=== PATIENT | male | born 1960 | race African-American/Black ===

== ENCOUNTER 2017-04-28 16:25 | Emergency (ER) | payer OTHER ==
[2017-04-28 17:24] VITALS: BP 145/96
--- NOTE | 2017-04-28 17:50 | UC ---
Mitch Olvera Aidan, scribed for Anamika Dickens MD on 04/28/17 at 1712 . Cardiac HPI - HPI Summary HPI Summary: 56 y/o male presents to the Urgent Care with a complaint of an acute, moderate- to-severe (8/10) episode of left-sided CP that began at 0530 this morning upon awakening. Fell asleep again, pain still present a couple hours late, but waned throughout the morning. Chest pain is "inside," points to mid left chest. Has been having L shoulder pain x approx 2 days. Unclear of alleviating or worsening factors, but seems to feel better when elevated. Worse lying down. Possibly attributes as a result of misbalance 2/2 pain in R neck several days ago (not now). No p/d/w. 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 No sob or palpitations. No GI issues. No rash. No recent fever / chills. Pain nonpleuritic. Pt denies any fever, cough, or recent travel. Hx of HTN. FHx of HTN and cardiac disease. Dominant hand is right. + tobacco 1ppd. No recent travel long distance. Pt mentions sleeping on his left side, and wonders if this is related. - History of Current Complaint Chief Complaint: UCChestPain Stated Complaint: CHEST PAIN Time Seen by Provider: 04/28/17 16:42 Hx Obtained From: Patient Onset/Duration: Sudden Onset, Lasting Hours - CP, Resolved - however, his shoulder pain is still present waxing and waning in severity Timing: Intermittent Episodes Lasting: - episode of CP, his shoulder pain is more constant despite waxing and waning in severity Initial Severity: Moderate Current Severity: Moderate Pain Intensity: 8 Chest Pain Location: Discrete at: - left side of chest Character: Pressure/Squeezing Aggravating: Exertion - applying pressure to the left shoulder aggravates shoulder pain Alleviating: Upright - lifting his left arm in the air slightly alleviates his left shoulder pain Associated Signs & Symptoms: Negative: Negative - left shoulder pain, episode of neck pain - Risk Factors Pulmonary Embolism Risk Factors: Smoking Cardiac Risk Factors: Hypertension, Smoking Atrial Fibrillation: Hypertension TAD Risk Factors: Smoking, Hypertension AMI/ACS Risk Factors: Hypertension, Smoking - Allergy/Home Medications Allergies/Adverse Reactions: Allergies Allergy/AdvReac Type Severity Reaction Status Date / Time No Known Allergies Allergy Verified 10/12/16 13:56 PMH/Surg Hx/FS Hx/Imm Hx Previously Healthy: Yes - htn Cardiovascular History: Hypertension Other History Of: Negative For: HIV, Hepatitis B, Hepatitis C, Anticoagulant Therapy - Surgical History Surgical History: Yes Surgery Procedure, Year, and Place: HERNIA- 1985, [facility] – [place]. PENIS SURGERY A CHILD , [facility] [place] - Family History Known Family History: Positive: Cardiac Disease, Hypertension, Diabetes - Social History Occupation: Employed Full-time Lives: With Family Alcohol Use: Occasionally Alcohol Amount: 3-4 Q 4-5 DAYS Substance Use Type: None Substance Use Comment - Amount & Last Used: CLEAN 1.5 YEARS Smoking Status (MU): Current Every Day Smoker Type: Cigarettes Amount Used/How Often: 1.5 PPD Have You Smoked in the Last Year: Yes Household Exposure Type: Cigarettes Review of Systems Constitutional: Negative Skin: Negative Eyes: Negative ENT: Negative Respiratory: Negative Cardiovascular: Chest Pain Gastrointestinal: Negative Genitourinary: Negative Motor: Other - see hpi Neurovascular: Negative Musculoskeletal: Arthralgia - left shoulder pain, episode of neck pain Neurological: Negative Psychological: Negative All Other Systems Reviewed And Are Negative: Yes Physical Exam Triage Information Reviewed: Yes Appearance: Well-Appearing - sitting up. conversing easily and appropriately., Well-Nourished Vital Signs: Initial Vital Signs Temp 99.4 F 04/28/17 16:27 Pulse 97 04/28/17 16:27 Resp 18 04/28/17 16:27 BP 113/96 04/28/17 16:27 Pulse Ox 99 04/28/17 16:27 Vital Signs Reviewed: Yes Eye Exam: Normal ENT Exam: Normal ENT: Positive: Normal ENT inspection Neck exam: Normal - although suspect djd Neck: Positive: Supple, Nontender, No Lymphadenopathy Respiratory Exam: Normal, Other - no dyspnea, no tachypnea, normal respiratory rate Respiratory: Positive: Chest non-tender, Lungs clear, Normal breath sounds, No respiratory distress, No accessory muscle use Cardiovascular Exam: Normal Cardiovascular: Positive: RRR, Brisk Capillary Refill, Other: - good general skin color unable to reproduce chest discomfort. No rash. No crepitus. Abdominal Exam: Normal Abdomen Description: Positive: Nontender, No Organomegaly, Soft Bowel Sounds: Positive: Present Musculoskeletal Exam: Other - Unable to localize point nadia or joint tenderness , although c/o tenderness ac joint area, also posterior shoulder. FROM. Strength good. + ax n sensation present bilat. Distal NVI. Musculoskeletal: Positive: Strength Intact Neurological Exam: Normal, Other - nonfocal, grossly intact Neurological: Positive: Alert Psychological Exam: Normal, Other - conversing easily and appropriately Psychological: Positive: Age Appropriate Behavior Skin Exam: Normal, Other - no visible and report rash Diagnostics - EKG Cardiac Rate: NL - 82 BPM Cardiac Rhythm: Sinus: Normal - EKG AT 1634; NORMAL SINUS RHYTHM, VA 165, QTC 436 - Assessment/Plan Course Of Treatment: No new problems in CCC. Still left shoulder discomfort. No current chest discomfort. EKG nsr 82 bpm. While ekg is normal, I d/w pt that this is not full assurance of a non-serious or non-cardiac issue. Recommend further evaluation and management in the ED. D/w pt, he expresses understanding and agreement. I spoke with FAISAL Gonzalez, ED. EMS transport offered but Mr. Estevez politely but firmly declines, his will drive him. He is aware of risks of cardiac or other serious event, disability or . Declines signing ama (for ems) form. Questions answered to the best of my ability. Departed the [facility], ambulatory. Diff dx - considered diff dx's as below. Your blood pressure was 113/96 which is hypertensive. Recommended follow-up with your primary care provider within 4 weeks for blood pressure readings and further evaluation. The FAISAL Chapman in the ED was consulted. The patient will be transfered to the ED. Resolutely declines aspirin po. - Clinical Impression Provider Diagnoses: Chest pain, shoulder pain Left - Physician Notifications Discussed Patient Care With: Adela (FAISAL in the ED) Time Discussed With Above Provider: 17:13 - The patient will be transfered to the ED, though he signed out AMA. He will be transported by his . Discharge - Discharge Plan Condition: Stable Disposition: TRANS HIGHER LVL OF CARE FAC Discharge Disposition Comment: The patient will be transfered at 1721 to the ED. Referrals: Josué Kenny DO [Primary Care Provider] - The documentation as recorded by the Mitch light Aidan accurately reflects the service I personally performed and the decisions made by me, Anamika Dickens MD.
== END 2017-04-28 17:15 | disposition left against medical advice (07) ==
LOC: UCEAST 16:25
DX: R07.9 Chest pain, unspecified (principal); M25.512 Pain in left shoulder; F17.210 Nicotine dependence, cigarettes, uncomplicated; I10 Essential (primary) hypertension
CPT/HCPCS: 93005; 99212; G0463

== ENCOUNTER → 2017-04-28 17:36 | Emergency (ER) | payer OTHER ==
[2017-04-28 17:48] VITALS: BP 133/88
== END | disposition left against medical advice (07) ==
LOC: ED 17:36
DX: R07.9 Chest pain, unspecified (principal); Z53.21 Procedure and treatment not carried out due to patient leaving prior to being seen by health care provider

== ENCOUNTER 2017-07-04 11:33 | Emergency (ER) | payer OTHER ==
[2017-07-04] MEDS ORDERED: Tetan/Diph/Pertus SYR(Tdap)* 0.5 ML SYR(BOOSTRIX) use SYR IM ONE (13:11)
--- NOTE | 2017-07-04 13:22 | RAD ---
INDICATION: Left third digit laceration COMPARISON: None TECHNIQUE: AP, lateral, and oblique views were obtained. FINDINGS: There is laceration about the tuft with bony involvement and associated cortical defect at the level of the tuft. There is mild diffuse soft tissue swelling. No additional findings. IMPRESSION: LACERATION AT THE LEVEL OF THE TUFT BONE INVOLVEMENT.
[2017-07-04 13:45] VITALS: BP 144/97
[2017-07-04] MEDS ORDERED: ceFAZolin 1 GM VIAL(*) 1 GM in NS 0.9% 50 ML* 50 ML IVPB ONE (13:47)
[2017-07-04] MEDS ORDERED: Lidocaine 2% PF * 5 ML VIAL INJ ONE (13:48)
[2017-07-04] MEDS ORDERED: ceFAZolin 1 GM VIAL(*) ONE (13:51)
--- NOTE | 2017-07-04 15:31 | UC ---
Laceration HPI - HPI Summary HPI Summary: 30 MINUTES [employer] WAS TRIMMING BUSHES WITH HEDGE TRIMMERS CUT TO (DISTAL VOLAR) LEFT MIDDLE FINGER - History Of Current Complaint Chief Complaint: UCLaceration Stated Complaint: FINGER LAC Hx Obtained From: Patient, Family/Elevators Inspector Laceration Location: Finger Mechanism Of Injury: Sharp Trauma Severity: Mild Pain Intensity: 0 Pain Scale Used: 0-10 Numeric Aggravating Factors: Movement - Allergies/Home Medications Allergies/Adverse Reactions: Allergies Allergy/AdvReac Type Severity Reaction Status Date / Time No Known Allergies Allergy Verified 07/04/17 12:12 PMH/Surg Hx/FS Hx/Imm Hx Previously Healthy: Yes Other History Of: Negative For: HIV, Hepatitis B, Hepatitis C, Anticoagulant Therapy - Surgical History Surgical History: Yes Surgery Procedure, Year, and Place: HERNIA- 1985, [facility] [place]. PENIS SURGERY A CHILD , [facility] [place] - Family History Known Family History: Positive: Cardiac Disease, Hypertension, Diabetes - Social History Occupation: Employed Full-time Lives: With Family Alcohol Use: Weekly Alcohol Amount: weekends Substance Use Type: None Substance Use Comment - Amount & Last Used: CLEAN 1.5 YEARS Smoking Status (MU): Heavy Every Day Tobacco Smoker Type: Cigarettes Amount Used/How Often: 1 PPD Have You Smoked in the Last Year: Yes Household Exposure Type: Cigarettes Review of Systems Constitutional: Negative Skin: Other - LACERATION LEFT THIRD FINGER Eyes: Negative ENT: Negative Respiratory: Negative Cardiovascular: Negative Gastrointestinal: Negative Genitourinary: Negative Motor: Negative Neurovascular: Negative Musculoskeletal: Negative Neurological: Negative Psychological: Negative All Other Systems Reviewed And Are Negative: Yes Physical Exam Triage Information Reviewed: Yes Appearance: Well-Appearing, No Pain Distress, Well-Nourished Vital Signs: Initial Vital Signs Temp 98.5 F 07/04/17 12:12 Pulse 85 07/04/17 12:12 Resp 18 07/04/17 12:12 BP 135/90 07/04/17 12:12 Pulse Ox 100 07/04/17 12:12 Vital Signs Reviewed: Yes Eye Exam: Normal ENT Exam: Normal ENT: Positive: Normal ENT inspection Dental Exam: Normal Neck exam: Normal Neck: Positive: Supple, Nontender, No Lymphadenopathy Respiratory Exam: Normal Respiratory: Positive: Chest non-tender, Lungs clear Cardiovascular Exam: Normal Cardiovascular: Positive: RRR, No Murmur, Pulses Normal Abdominal Exam: Normal Musculoskeletal Exam: Normal Musculoskeletal: Positive: Strength Intact, ROM Intact Neurological Exam: Normal Psychological Exam: Normal Skin: Positive: Other - LACERATION LEFT THIRD FINGER Laceration Repair - Laceration Repair 1 Description: Linear Laceration Size After Repair: Length (cm) - 1, Width (mm) - 4, Depth (mm) - 8 Type Injection: Digital Anesthesia Used: 2.0% Lido Cleansing Completed Via Routine Prep: Yes Irrigation With Pressure Irrigation Device: Yes Closure Material: Sutures - 3 X 4-0 Closure Method: Single Layer Suture Of: Skin Suture Type: Prolene Laceration Course/Dx - Differential Dx - Laceration/Wound Differental Diagnoses: Foreign Body, Fracture, Laceration Provider Diagnoses: OPEN FRACTURE OF TUFT OF DISTAL LEFT THIRD FINGER WITH REPAIR - Physician Notification/Consults Discussed Patient Care With: Vu Ca Time Discussed With Above Provider: 14:30 Discharge - Discharge Plan Condition: Stable Disposition: HOME Prescriptions: Cephalexin CAP* [Keflex CAP*] 500 mg PO QID #40 cap Patient Education Materials: Finger Fracture (ED), Finger Laceration (ED) Forms: *Work Release Referrals: Vu Ca MD [Medical Doctor] - Josué Kenny DO [Primary Care Provider] -
== END 2017-07-04 15:00 | disposition home or self-care (01) ==
LOC: UCEAST 11:33
DX: S62.633B Displaced fracture of distal phalanx of left middle finger, initial encounter for open fracture (principal); S61.213A Laceration without foreign body of left middle finger without damage to nail, initial encounter; W29.3XXA Contact with powered garden and outdoor hand tools and machinery, initial encounter; Y93.H2 Activity, gardening and landscaping; Y92.9 Unspecified place or not applicable; F17.210 Nicotine dependence, cigarettes, uncomplicated; Z23 Encounter for immunization
CPT/HCPCS: 12001; 73140; 90471; 90715; 96365; 99212; G0463; J0690

== ENCOUNTER 2017-07-15 12:44 | Emergency (ER) | payer OTHER ==
[2017-07-15 12:55] VITALS: BP 121/85
--- NOTE | 2017-07-19 07:17 | UC ---
HPI Wound/Suture Re-check - HPI Summary HPI Summary: 56 YEAR OLD MALE PRESENTS FOR REMOVAL OF STITCHES FROM 3RD LEFT FINGER. - History Of Current Complaint Chief Complaint: UCSkin Stated Complaint: SUTURE REMOVAL Time Seen by Provider: 07/15/17 12:56 Hx Obtained From: Patient Onset/Duration: Sudden Onset Severity: Moderate Pain Intensity: 0 Pain Scale Used: 0-10 Numeric - 5 - Allergies/Home Medications Allergies/Adverse Reactions: Allergies Allergy/AdvReac Type Severity Reaction Status Date / Time No Known Allergies Allergy Verified 07/04/17 12:12 PMH/Surg Hx/FS Hx/Imm Hx Previously Healthy: Yes Other History Of: Negative For: HIV, Hepatitis B, Hepatitis C, Anticoagulant Therapy - Surgical History Surgical History: Yes Surgery Procedure, Year, and Place: HERNIA- 1985, [facility]. PENIS SURGERY A CHILD , [facility] - Family History Known Family History: Positive: Cardiac Disease, Hypertension, Diabetes - Social History Alcohol Use: Weekly Alcohol Amount: weekends Substance Use Type: None Substance Use Comment - Amount & Last Used: CLEAN 1.5 YEARS Smoking Status (MU): Heavy Every Day Tobacco Smoker Type: Cigarettes Amount Used/How Often: 1 PPD Have You Smoked in the Last Year: Yes Household Exposure Type: Cigarettes Review of Systems Constitutional: Negative Skin: Other - SUTURE REMOVAL 3RD LEFT FINGER Eyes: Negative ENT: Negative Respiratory: Negative Cardiovascular: Negative Gastrointestinal: Negative Genitourinary: Negative Motor: Negative Neurovascular: Negative Musculoskeletal: Negative Neurological: Negative Psychological: Negative All Other Systems Reviewed And Are Negative: Yes Physical Exam Triage Information Reviewed: Yes Vital Signs: Initial Vital Signs Temp 37.3 C 07/15/17 12:52 Pulse 86 07/15/17 12:52 Resp 18 07/15/17 12:52 BP 121/85 07/15/17 12:52 Pulse Ox 100 07/15/17 12:52 Eye Exam: Normal ENT Exam: Normal Dental Exam: Normal Neck exam: Normal Neck: Positive: 1 Respiratory Exam: Normal Cardiovascular Exam: Normal Abdominal Exam: Normal Musculoskeletal Exam: Normal Neurological Exam: Normal Psychological Exam: Normal Skin: Positive: Other - SUTURE REMOVAL 3RD LEFT FINGER Course/Dx - Differential Dx - Laceration/Wound Provider Diagnoses: SUTURE REMOVAL 3RD LEFT FINGER Discharge - Discharge Plan Condition: Stable Disposition: HOME Patient Education Materials: Stitches Removal (ED) Referrals: Josué Kenny DO [Primary Care Provider] - If Needed
== END 2017-07-15 13:00 | disposition home or self-care (01) ==
LOC: UCEAST 12:44
DX: S61.213D Laceration without foreign body of left middle finger without damage to nail, subsequent encounter (principal); X58.XXXD Exposure to other specified factors, subsequent encounter; Y92.9 Unspecified place or not applicable; F17.210 Nicotine dependence, cigarettes, uncomplicated